=== PATIENT | male | born 1965 | race Caucasian/White ===

== ENCOUNTER 2016-11-13 17:27 | Observation (INO) | payer OTHER ==
[2016-11-13 17:32] VITALS: BMI 25.8
--- NOTE | 2016-11-13 17:59 | PDOC ---
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, with no significant past medical history who presents to the ED with complaints of perianal abscess which he noticed today. He denies noticing any drainage to the area and denies any other complaints. The patient is going to be taken to the OR for an I&D of the abscess by Dr. Acuña. The patient denies any fevers or chills. <Charlette Eastman - Last Filed: 11/13/16 19:43> <Danii Warren - Last Filed: 11/14/16 02:18> - General Chief Complaint: Abscess Boil Stated Complaint: ABSCESS Time Seen by Provider: 11/13/16 17:43 Past History <Charlette Eastman - Last Filed: 11/13/16 19:43> - Past Medical History Anemia: No Asthma: No Cancer: No Cardiac Disorders: No CVA: No COPD: No CHF: No Dementia: No Diabetes: No GI Disorders: No Disorders: No HTN: No Hypercholesterolemia: No Liver Disease: No Seizures: No Thyroid Disease: No - Psycho/Social/Smoking Cessation Hx Suicidal Ideation: No Smoking History: Never smoked Hx Alcohol Use: Yes (SOCIAL) Drug/Substance Use Hx: No Substance Use Type: None Hx Substance Use Treatment: No <Danii Warren - Last Filed: 11/14/16 02:18> - Past Medical History Allergies/Adverse Reactions: Allergies Allergy/AdvReac Type Severity Reaction Status Date / Time Penicillins Allergy Verified 11/13/16 17:30 Home Medications: Ambulatory Orders Levofloxacin [Levaquin] 500 mg PO DAILY 11/13/16 Review of Systems - Review of Systems Able to Perform ROS?: Yes Comments:: 11/13/16 18:05 CONSTITUTIONAL: Absent: fever, no chills, no fatigue EYES: Absent: visual changes ENT: Absent: ear pain, no sore throat CARDIOVASCULAR: Absent: chest pain, no palpitations RESPIRATORY: Absent: cough, no SOB GI: Absent: abdominal pain, no nausea, no vomiting, no constipation, no diarrhea GENITOURINARY: Absent: dysuria, no frequency, no hematuria MUSKULOSKELETAL: Absent: back pain, no arthralgia, no myalgia SKIN: Present: perianal abscess Absent: rash NEURO: Absent: headache All Other Systems: Reviewed and Negative <Charlette Eastman - Last Filed: 11/13/16 19:43> *Physical Exam - Vital Signs Last Vital Signs Temp Pulse Resp BP Pulse Ox 98.1 F 91 H 18 146/80 99 11/13/16 17:30 11/13/16 17:30 11/13/16 17:30 11/13/16 17:30 11/13/16 17:30 - Physical Exam Comments: 11/13/16 18:10 GENERAL: Well-appearing, well-nourished. No apparent distress. HEENT: Normocephalic, atraumatic. PERRL, EOM intact. CARDIOVASCULAR: Normal S1, S2. Regular rate and rhythm. PULMONARY: Clear to auscultation bilaterally. ABDOMEN: Soft, non-distended, non-tender. EXTREMITIES: Normal ROM in all four extremities. No gross deformities. SKIN: Perianal abscess. Warm, dry. NEUROLOGICAL: No focal neurological deficits. <Charlette Eastman - Last Filed: 11/13/16 19:43> - Vital Signs Last Vital Signs Temp Pulse Resp BP Pulse Ox 98.1 F 91 H 18 146/80 99 11/13/16 17:30 11/13/16 17:30 11/13/16 17:30 11/13/16 17:30 11/13/16 17:30 <Danii Warren - Last Filed: 11/14/16 02:18> Heart Score/ECG Review - ECG Intrepretation Comment:: 11/13/16 19:43 ECG obtained at 18:00 Normal sinus at 78 bpm <Charlette Eastman - Last Filed: 11/13/16 19:43> ED Treatment Course - LABORATORY CBC & Chemistry Diagram: 11/13/16 18:00 11/13/16 18:00 <Charlette Eastman - Last Filed: 11/13/16 19:43> - LABORATORY CBC & Chemistry Diagram: 11/13/16 18:00 11/13/16 18:00 <Danii Warren - Last Filed: 11/14/16 02:18> Medical Decision Making - Medical Decision Making 11/14/16 02:16 51-year-old male sent in by his surgeon for incision and drainage of perianal abscess -stable vital signs -IV placed,ekg ,cbc,comp -pt went to OR <Danii Warren - Last Filed: 11/14/16 02:18> *DC/Admit/Observation/Transfer - Attestations Scribe Attestion: 11/13/16 18:11 Documentation prepared by Charlette Eastman, acting as medical surgical tech for Danii Warren MD. <Charlette Eastman - Last Filed: 11/13/16 19:43> - Discharge Dispostion Admit: Yes <Danii Warren - Last Filed: 11/14/16 02:18> Diagnosis at time of Disposition: Perianal abscess - Discharge Dispostion Condition at time of disposition: Stable - Referrals - Patient Instructions
[2016-11-13] MEDS ORDERED: SODIUM CHLORIDE 1,000 ML IV STA (18:05)
[2016-11-13] MEDS ORDERED: MIDAZOLAM HCL 2 MG/2 ML SINGLE DOSE VIAL ONE ×2 (18:39)
[2016-11-13] MEDS ORDERED: PROPOFOL 20 ML ONE ×2 (18:39)
[2016-11-13] MEDS ORDERED: BUPIVACAINE HCL/PF 0.5% (5MG/ML) 10 ML VIAL ONE (18:42)
[2016-11-13] MEDS ORDERED: LIDOCAINE HCL 2% (20ML MULTI-DOSE VIAL) NR ONE (18:42)
[2016-11-13 18:50] LABS: BASOPHIL 0.4 % (0-2.0); EOSINOPHIL 1.1 % (0-4.5); MCH 26.2 pg (25.7-33.7); MCHC 33.6 g/dl (32.0-35.9); MEAN CELL VOLUME 77.9 fl (80-96); MEAN PLT VOLUME 9.7 fl (7.5-11.1); NEUTROPHILS 60.7 % (42.8-82.8); PLATELET COUNT 304 K/MM3 (134-434); RDW 15.4 % (11.9-15.9)
[2016-11-13] MEDS ORDERED: CLINDAMYCIN 600 MG PREMIX BAG IVPB ONE (18:50)
[2016-11-13] MEDS ORDERED: BUPIVACAINE HCL/PF (5 MG/ML) 30 ML VIAL IJ ONE (18:50)
[2016-11-13] MEDS ORDERED: LIDOCAINE HCL 2% (50ML VIAL) NR ONE (18:55)
[2016-11-13] MEDS ORDERED: oxyCODONE HCL 5 MG TABLET PO PRN (19:13)
[2016-11-13] MEDS ORDERED: PROMETHAZINE HCL 25 MG/1 ML VIAL IVPUSH PRN (19:13)
[2016-11-13] MEDS ORDERED: ONDANSETRON 4 MG/2 ML VIAL IVPUSH PRN (19:13)
--- NOTE | 2016-11-13 19:22 | HP ---
Satellite H - Chief Complaint Chief Complaint: Drainage of pus in perirecral area for 2 weeks. History of Present Illness: C/O Intermittent drainage of pus from the pernieum , with pain and selling , followed by discharge, for the past 2 weeks. History Source: Patient Limitations to Obtaining History: No Limitations - Past Medical History Allergies/Adverse Reactions: Allergies Allergy/AdvReac Type Severity Reaction Status Date / Time Penicillins Allergy Verified 11/13/16 17:30 - Current Medications Current Medications: Home Medications Medication Instructions Recorded Levofloxacin [Levaquin] 500 mg PO DAILY 11/13/16 Satellite Physical Exam - Physical Examination Vital Signs: Vital Signs Period Temp Pulse Resp BP Sys/Patten Pulse Ox Last 24 Hr 98.1 F 91 18 146/80 99 Abdomen: Other (In the perineum there is a drainind , and indurated area at 111 O'Clock position from the anus, suggestive of a draining abscess.) Satellite Impression/Plan - Impression/Plan Impression: Perianal abscess, possible anal fistula. Plan: Examination under anesthesia, and drainage of perianal abscess. Operative Procedure: Examination under anesthesia and drainage of perianal abscess. Date to be Performed: 11/13/16
--- NOTE | 2016-11-13 19:25 | OP ---
Operative Note - Note: Operative Date: 11/13/16 Pre-Operative Diagnosis: Perianal abscess. Operation: Examination under anesthesia, drainage of perianal abscess. Findings: Perianal abscess at 11O'clock position with , ? superficial anl fistula. Post-Operative Diagnosis: Same as Pre-op Surgeon: Dee Acuña Anesthesia: General Specimens Removed: Swab for culture. Estimated Blood Loss (mls): 10 Operative Report Dictated: Yes
[2016-11-13 19:27] LABS: ALBUMIN 4.1 g/dl (3.4-5.0); ALK PHOS 84 U/L (45-117); ANION GAP 7 (8-16); BILIRUBIN,TOTAL 0.6 mg/dL (0.2-1.0); CALCIUM 9.6 mg/dL (8.5-10.1); CO2 27 mmol/L (21-32); CREATININE 0.9 mg/dL (0.7-1.3); GLUCOSE,RANDOM 79 mg/dL (74-106); SGOT/AST 17 U/L (15-37); SGPT/ALT 28 U/L (12-78); TOT PROT 7.8 g/dl (6.4-8.2)
[2016-11-13 20:22] VITALS: PULSE 68
[2016-11-13 20:29] VITALS: BP 112/78; TEMP 98.3
--- NOTE | 2016-11-14 07:54 | OP ---
DATE OF OPERATION: 11/13/2016 PREOPERATIVE DIAGNOSIS: Recurrent perianal abscess, rule out anal fistula. POSTOPERATIVE DIAGNOSIS: Perianal abscess with superficial anal fistula at the 11 o'clock position. OPERATIVE PROCEDURE: Examination under anesthesia, incision and drainage of perianal abscess. OPERATIVE FINDINGS: Perianal abscess at the 11 o'clock position with a subcutaneous superficial anal fistula. SURGEON: Kayden Acuña MD ANESTHESIA: General anesthesia. ANESTHESIOLOGIST: Francisco Muhammad MD OPERATIVE DESCRIPTION: This 51-year-old man presented with recurrent draining perianal abscesses for the last few weeks. Patient was examined. There was induration at about 11 o'clock about 2 to 3 cm from the anal verge. Patient was brought for examination under anesthesia and for drainage of perianal abscess and evaluation. Patient was given general anesthesia after obtaining consent. Timeout was called. He was given 1 g of clindamycin as he is allergic to PENICILLIN. He was placed in lithotomy position and the perineum was painted and draped. There was induration about 4 cm from anal verge at the 11 o'clock position. This was incised and pus was evacuated. Swab was sent for culture and natibiotic sensitivity. This was then probed and it was found that there was a subcutaneous tract all the way down to the anorectal junction. This was a very superficial anal fistula. However, the external opening was widened. About 2 cm diameter of the skin was excised. The tract was then cauterized with electrocautery and the area was saucerized. The wound was irrigated and packed with 1/4-inch Iodoform gauze and a dressing applied. Patient tolerated the procedure well and was sent to the recovery room in satisfactory and stable condition. Prior to this, a generous amount of 1% lidocaine was infiltrated around the inflammation. Zain WILKINS/[id number] cc: MD DAVID Casiano
--- NOTE | 2016-11-14 14:45 | EKG ---
Test Reason : Blood Pressure : / mmHG Vent. Rate : 078 BPM Atrial Rate : 078 BPM P-R Int : 152 ms QRS Dur : 084 ms QT Int : 342 ms P-R-T Axes : 059 014 027 degrees QTc Int : 389 ms NORMAL SINUS RHYTHM NORMAL ECG NO PREVIOUS ECGS AVAILABLE Confirmed by RICH JOSÉ MD ([id number]) on 11/14/2016 2:44:57 PM Referred By: Confirmed By:RICH JOSÉ MD
== END 2016-11-13 21:14 | disposition home or self-care (01) ==
LOC: JER 17:27 → J4S 20:19
PROVIDERS: ADMIT Specialist; ATTEND Specialist
PROC: 0D9Q0ZX Drainage of Anus, Open Approach, Diagnostic (ICD-10-PCS; principal; 2016-11-13 18:30)
DX: K61.0 Anal abscess (principal)
CPT/HCPCS: 36415; 80053; 85025; 87070; 87076; 87205; 93005; 93010; 94760; 99283-25; G0378

== ENCOUNTER 2017-01-11 08:30 | Day surgery (SDC) | payer OTHER ==
[2017-01-10 16:25] VITALS: BMI 25.8
--- NOTE | 2017-01-11 08:59 | HP ---
History & Physical Update - History History: No Change - Physical Physical: No Change - Assessment Assessment: No Change - Plan Plan: No Change
[2017-01-11] MEDS ORDERED: MIDAZOLAM HCL 2 MG/2 ML SINGLE DOSE VIAL ONE (09:10)
[2017-01-11] MEDS ORDERED: PROPOFOL 20 ML ONE (09:10)
[2017-01-11] MEDS ORDERED: LIDOCAINE HCL/PF 2% SDV 5ML VIAL ONE (09:30)
[2017-01-11] MEDS ORDERED: LEVOFLOXACIN 500 MG IVPB 100 ML IVPB ONE (09:33)
[2017-01-11] MEDS ORDERED: LEVOFLOXACIN 500 MG PREMIX BAG IVPB ONE (09:34)
[2017-01-11] MEDS ORDERED: DEXAMETHASONE SOD PHOSPHATE 4 MG/1 ML VIAL ONE (09:46)
[2017-01-11] MEDS ORDERED: BUPIVACAINE HCL/PF 0.5% (5MG/ML) 10 ML VIAL IJ ONE ×2 (09:47→10:15)
[2017-01-11] MEDS ORDERED: KETOROLAC TROMETHAMINE 30 MG/1 ML VIAL ONE (09:56)
[2017-01-11] MEDS ORDERED: GLYCOPYRROLATE 0.2 MG/1 ML VIAL ONE (09:56)
[2017-01-11] MEDS ORDERED: PROMETHAZINE HCL 25 MG/1 ML VIAL IVPUSH PRN (10:37)
[2017-01-11] MEDS ORDERED: ONDANSETRON 4 MG/2 ML VIAL IVPUSH PRN (10:37)
[2017-01-11] MEDS ORDERED: LACTATED RINGERS SOLUTION 1,000 ML IV SCH (10:45)
--- NOTE | 2017-01-11 10:48 | OP ---
Operative Note - Note: Operative Date: 01/11/17 Pre-Operative Diagnosis: Anal fistula. Operation: Proctosigmoidoscopy, anal dilation, and rectal polypectomy. Anal fistulectomy, with placement of seton. Findings: Recatl poyp at 12 o'clock position, excised. Anal fistula at 10 o"clock position traversing the superficial fibers of the external sphincter. Post-Operative Diagnosis: Other (Rectal polyp, and anal fistula, transsphincteric.) Surgeon: Dee Acuña Anesthesiologist/ELECTRICAL & INSTRUMENTATION SUPERVISOR: Jhonny Mo Anesthesia: General Specimens Removed: 1)Rectal poyp,0. 2) anal fistula. Estimated Blood Loss (mls): 10 Instrument used (Debridements only): Curette Operative Report Dictated: Yes
--- NOTE | 2017-01-11 12:13 | OP ---
DATE OF OPERATION: 01/11/2017 PREOPERATIVE DIAGNOSIS: Anal fistula at the 11 o'clock position with recurrent abscesses. POSTOPERATIVE DIAGNOSIS: 1. Anal fistula at the 11 o'clock position with recurrent abscesses. 2. Transsphincteric anal fistula at 10 o'clock position and rectal polyp at 12 o'clock position. OPERATIVE PROCEDURE: 1. Proctosigmoidoscopy with anal dilation and rectal polypectomy. 2. Anal fistulectomy with placement of seton. SURGEON: Souleymane Wilkins MD ANESTHESIA: General anesthesia. 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 The patient was brought in for anal fistulectomy. Consent was obtained. Risks, benefits, and complications were discussed with the patient. Patient was placed in lithotomy position after he was given general anesthesia. The perineum was painted and draped. Time-out was called. He was given 1 g of Levaquin and A proctosigmoidoscopy was done with a rigid scope. The bowel prep was adequate. There was a small polyp, which appeared to be a fibrotic polyp at 12 o'clock position. This was excised with electrocautery. Specimen was sent to Pathology. A probe was then inserted through the external opening of the anal fistula over the skin at 10 o'clock position. This entered at 10 o'clock position into the anorectal junction. An elliptical incision was then made around the external opening of the fistula. This was carried down through the skin and subcutaneous tissues in an elliptical fashion towards the internal opening. This was carried down through the anal fistula all the way down. As it went towards the internal opening, it appeared to pass through the superficial fibers of the external sphincter. This last 1 cm was then left with the probe. The fistula was curetted. The fistula distal to this all the way to the external skin was completely excised and sent to Pathology. The tract was then curetted with a curette . A No. 2 Prolene suture was then inserted through the remnant of the fistula, and this was tied. Hemostasis was then achieved. Wound was irrigated and packed with Iodoform gauze. Estimated blood loss was less then 10 mL. Sponge count and instrument count were correct. Sterile dressing was placed. Specimen consisted of 1 rectal polyp, another anorectal fistula. Zain WILKINS/[id number] MTDD
[2017-01-11 12:54] VITALS: TEMP 97.9
[2017-01-11 14:02] VITALS: BP 141/84; PULSE 71
--- NOTE | 2017-01-14 09:56 | PATH ---
Surgical Pathology Report Patient Name: YASSINE MEDINA [facility]. Rec. #: [id number] /Age/Gender: 1965 (Age: 51) / M Account: [id number] Location: [facility] SURGICAL Taken: 01/11/2017 Received: 01/11/2017 Reported: 01/14/2017 Physicians: Kayden Acuña M.D. Specimen(s) Received A: ANAL RECTAL POLYP AT 11'O'CLOCK B: ANAL FISTULA Clinical History Anal fistula Final Diagnosis A. ANORECTAL POLYP AT 11:00, POLYPECTOMY: BENIGN SQUAMOUS MUCOSA WITH FIBROEPITHELIAL POLYP AND ECTATIC BLOOD VESSELS. MILD CHRONIC INFLAMMATION AND FOCAL PARAKERATOSIS IS PRESENT AREAS NO DYSPLASIA IDENTIFIED. B. ANAL FISTULA, CURETTING: BENIGN SQUAMOUS MUCOSA WITH FISTULA TRACT, WITH ASSOCIATED INFLAMED GRANULATION TISSUE. FOREIGN BODY REACTION IS PRESENT. NO DYSPLASIA IDENTIFIED. Electronically Signed Abraham Regalado M.D. Gross Description A. Received in formalin labeled "anal rectal polyp at 11:00," is a 0.7 x 0.5 x 0.2 cm pink-youngblood, polypoid portion of soft tissue. The base is inked blue and the specimen is submitted in toto in one cassette. B. Received in formalin labeled "anal fistula," is a 2.4 x 1.3 x 1.2 cm irregular, unoriented portion of skin with underlying soft tissue. The base is inked blue and the specimen is serially sectioned and entirely and sequentially submitted in 4 cassettes. /01/11/2017 saudi/01/11/2017
== END 2017-01-11 13:00 | disposition home or self-care (01) ==
LOC: JASU-SURG 08:30
PROVIDERS: ATTEND Specialist
PROC: 0DBQ0ZZ Excision of Anus, Open Approach (ICD-10-PCS; 2017-01-11)
PROC: 0D5P8ZZ Destruction of Rectum, Via Natural or Artificial Opening Endoscopic (ICD-10-PCS; 2017-01-11)
PROC: 0D5P8ZZ Destruction of Rectum, Via Natural or Artificial Opening Endoscopic (ICD-10-PCS; principal; 2017-01-11 09:30)
DX: K60.3 Anal fistula (principal); K62.1 Rectal polyp
CPT/HCPCS: 88304-TC; 94760

== ENCOUNTER 2017-02-22 08:28 | Day surgery (SDC) | payer OTHER ==
[2017-02-20 15:54] VITALS: BMI 25.8
[2017-02-22] MEDS ORDERED: LIDOCAINE 1%/EPI 1:100000 (20 ML MULTI DOSE VIAL) ONE (09:19)
[2017-02-22] MEDS ORDERED: BUPIVACAINE HCL/PF 0.5% (5MG/ML) 10 ML VIAL ONE (09:19)
[2017-02-22] MEDS ORDERED: MIDAZOLAM HCL 2 MG/2 ML SINGLE DOSE VIAL ONE ×2 (09:19)
[2017-02-22] MEDS ORDERED: LIDOCAINE HCL 2% 100 MG/5 ML DISP.SYRIN ONE (09:20)
[2017-02-22] MEDS ORDERED: PROPOFOL 20 ML ONE (09:20)
[2017-02-22] MEDS ORDERED: LEVOFLOXACIN 500 MG PREMIX BAG IVPB ONE (09:45)
[2017-02-22] MEDS ORDERED: ONDANSETRON 4 MG/2 ML VIAL ONE (09:48)
[2017-02-22] MEDS ORDERED: KETOROLAC TROMETHAMINE 30 MG/1 ML VIAL ONE (09:48)
[2017-02-22] MEDS ORDERED: BUPIVACAINE HCL/PF 0.5% (5MG/ML) 10 ML VIAL IJ ONE (09:48)
[2017-02-22] MEDS ORDERED: DEXAMETHASONE SOD PHOSPHATE 4 MG/1 ML VIAL ONE (09:48)
--- NOTE | 2017-02-22 10:04 | OP ---
Operative Note - Note: Operative Date: 02/22/17 Pre-Operative Diagnosis: Anal fistula, s/p Placement of seton. Operation: Anoscopy , anal dialtation. anal fistulotomy. Examination under anesthesia. Findings: Small superficial anal fistula at 11 O'Clock position. Post-Operative Diagnosis: Same as Pre-op Surgeon: Dee Acuña Anesthesia: General Specimens Removed: None, Estimated Blood Loss (mls): 5 Operative Report Dictated: Yes
[2017-02-22] MEDS ORDERED: ONDANSETRON 4 MG/2 ML VIAL IVPUSH PRN (10:43)
[2017-02-22] MEDS ORDERED: PROMETHAZINE HCL 25 MG/1 ML VIAL IVPUSH PRN (10:43)
[2017-02-22] MEDS ORDERED: oxyCODONE HCL 5 MG TABLET PO PRN (10:43)
[2017-02-22] MEDS ORDERED: LACTATED RINGERS SOLUTION 1,000 ML IV SCH (10:45)
--- NOTE | 2017-02-22 10:50 | OP ---
DATE OF OPERATION: 02/22/2017 PREOPERATIVE DIAGNOSIS: Anal fistula status post first stage and placement of seton. POSTOPERATIVE DIAGNOSIS: Anal fistula at the 11 o'clock position status post first stage and placement of seton. OPERATIVE PROCEDURE: Anoscopy with anal dilatation, examination under anesthesia, and anal fistulotomy. SURGEON: Kayden Acuña MD ANESTHESIA: General anesthesia. OPERATIVE DESCRIPTION: This 51-year-old gentleman who has had chronic perianal abscess with anal fistula had undergone first stage anal fistulotomy with placement of a seton through the external sphincter about 8 weeks ago. The patient was brought in for replacement of the seton and possible anal fistulotomy. The patient was given general anesthesia and placed in the lithotomy position. The perineum was painted and draped. A time-out was called. He was given a gram of Cipro. Anal dilatation was performed with finger, and anoscope was introduced. There was granulation tissue at 11 o'clock position, from the previous partial , first stage fistulectomy. A small fistulous tract was identified, on the medial aspect of the granulation tissue , towards the anal canal. Through this fistula, a fistula probe was introduced, which opened into the anal canal. The fistula tract was superficial, and not traversing the external anal sohincter. There was plenty of scar tissue and granulation around the tract,, and it did not appear to go through the external sphincter. A small anal fistula about 1 cm in length was then incised and opened, over the probe. There was no purulent material. The wound was fresh, clean, and there appeared to be no concern of compromise of the anal sphincter. Then 0.5% Marcaine was injected around the external sphincter. Pad was left. The patient tolerated the procedure well and was extubated and sent to the recovery room in satisfactory and stable condition. Zain [id number] cc: Slim Hoyos MD MTDD
[2017-02-22 10:57] VITALS: TEMP 97.9
[2017-02-22 12:20] VITALS: BP 130/86; PULSE 91
== END 2017-02-22 12:20 | disposition home or self-care (01) ==
LOC: JASU-SURG 08:28
PROVIDERS: ATTEND Specialist
PROC: 0D8R0ZZ Division of Anal Sphincter, Open Approach (ICD-10-PCS; principal; 2017-02-22 09:30)
DX: K60.3 Anal fistula (principal)
CPT/HCPCS: 94760

== ENCOUNTER 2018-06-23 07:12 | Day surgery (SDC) | payer OTHER ==
[2018-06-23 07:37] VITALS: BMI 25.5
[2018-06-23 09:18] VITALS: TEMP 97.5
[2018-06-23 10:20] VITALS: BP 111/70; PULSE 66
--- NOTE | 2018-06-24 18:32 | PATH ---
Surgical Pathology Report Patient Name: YASSINE MEDINA [facility]. Rec. #: [id number] /Age/Gender: 1965 (Age: 53) / M Account: [id number] Location: [facility]-ENDOSCOPY Taken: 06/23/2018 Received: 06/23/2018 Reported: 06/24/2018 Physicians: Dinh Kamara M.D. Specimen(s) Received A: DUODENUM AND BULB B: CARDIA POLYP C: ANTRUM D: GE JUNCTION E: ILEOCECAL VALVE POLYP F: HEPATIC FLEXURE POLYP G: RECTAL POLYP Clinical History Dyspepsia and colon cancer screening Postoperative diagnosis: Gastric polyp, colon polyps Final Diagnosis A. DUODENUM, SECOND PORTION AND BULB, BIOPSY: DUODENAL MUCOSA WITHOUT SIGNIFICANT PATHOLOGIC FINDINGS. B. GASTRIC CARDIA POLYP, BIOPSY: POLYPOID GASTRIC CARDIAC TYPE MUCOSA WITH MODERATE TO SEVERE CHRONIC ACTIVE GASTRITIS. IMMUNOHISTOCHEMICAL STAIN FOR H. PYLORI IS POSITIVE (MANY). C. ANTRUM, BIOPSY: GASTRIC ANTRAL MUCOSA WITH SEVERE CHRONIC ACTIVE GASTRITIS. IMMUNOHISTOCHEMICAL STAIN FOR H. PYLORI IS POSITIVE (MANY). D. GE JUNCTION, BIOPSY: SQUAMOCOLUMNAR MUCOSA WITH MILD CHRONIC INFLAMMATION AND CHANGES OF MODERATE TO SEVERE REFLUX ESOPHAGITIS. NO INTESTINAL METAPLASIA OR DYSPLASIA IDENTIFIED. E. ILEOCECAL VALVE, POLYP, BIOPSY: TUBULAR ADENOMA. F. HEPATIC FLEXURE, POLYP, BIOPSY: TUBULAR ADENOMA. G. RECTUM, POLYP, BIOPSY: COLONIC MUCOSA WITH FOCAL SUPERFICIAL HYPERPLASTIC FEATURES. Electronically Signed Joy Nunez M.D. Gross Description A. Received in formalin, labeled "second portion of duodenum and bulb biopsy" are 3 youngblood, irregular portions of soft tissue ranging from 0.4-0.5 cm. in greatest dimension. The specimens are submitted in toto in one cassette. B. Received in formalin, labeled "gastric cardia polyp" are 3 youngblood, irregular portions of soft tissue ranging from 0.1-0.8 cm. in greatest dimension. The specimens are submitted in toto in one cassette. C. Received in formalin, labeled "antrum biopsy" are 6 youngblood, irregular portions of soft tissue ranging from 0.2-0.6 cm. in greatest dimension. The specimens are submitted in toto in one cassette. D. Received in formalin, labeled "GE junction biopsy" are 2 youngblood, irregular portions of soft tissue measuring 0.3 and 0.5 cm. in greatest dimension. The specimens are submitted in toto in one cassette. E. Received in formalin, labeled "ileocecal valve biopsy" are 2 youngblood, irregular portions of soft tissue measuring 0.1 and 0.3 cm. in greatest dimension. The specimens are submitted in toto in one cassette. F. Received in formalin, labeled "hepatic flexure polyp biopsy" are 2 youngblood, irregular portions of soft tissue measuring 0.3 and 0.6 cm. in greatest dimension. The specimens are submitted in toto in one cassette. G. Received in formalin, labeled "rectal polyp biopsy" is a youngblood, irregular portion of soft tissue measuring 0.3 cm. in greatest dimension. The specimen is submitted in toto in one cassette. 06/23/2018 [facility]06/23/2018
== END 2018-06-23 10:28 | disposition home or self-care (01) ==
LOC: JASU-ENDO 07:12
PROVIDERS: ATTEND Internal Medicine Gastroenterology
PROC: 0DBL8ZX Excision of Transverse Colon, Via Natural or Artificial Opening Endoscopic, Diagnostic (ICD-10-PCS; 2018-06-23)
PROC: 0DBP8ZX Excision of Rectum, Via Natural or Artificial Opening Endoscopic, Diagnostic (ICD-10-PCS; 2018-06-23)
PROC: 0DB98ZX Excision of Duodenum, Via Natural or Artificial Opening Endoscopic, Diagnostic (ICD-10-PCS; 2018-06-23)
PROC: 0DB68ZX Excision of Stomach, Via Natural or Artificial Opening Endoscopic, Diagnostic (ICD-10-PCS; 2018-06-23)
PROC: 0DB48ZX Excision of Esophagogastric Junction, Via Natural or Artificial Opening Endoscopic, Diagnostic (ICD-10-PCS; 2018-06-23)
PROC: 0DBC8ZX Excision of Ileocecal Valve, Via Natural or Artificial Opening Endoscopic, Diagnostic (ICD-10-PCS; principal; 2018-06-23 09:00)
DX: Z12.11 Encounter for screening for malignant neoplasm of colon (principal); D12.3 Benign neoplasm of transverse colon; D12.0 Benign neoplasm of cecum; K62.1 Rectal polyp; R10.13 Epigastric pain; K31.7 Polyp of stomach and duodenum; K29.50 Unspecified chronic gastritis without bleeding; K21.0 Gastro-esophageal reflux disease with esophagitis; B96.81 Helicobacter pylori [H. pylori] as the cause of diseases classified elsewhere; K64.8 Other hemorrhoids
CPT/HCPCS: 88305-TC; 88342-TC

== ENCOUNTER 2022-10-01 04:38 | Day surgery (SDC) | payer OTHER ==
[2022-09-27 13:45] VITALS: BMI 23.8
[2022-10-01 12:00] VITALS: BP 114/76; PULSE 67; RESP 19; TEMP 98.5
== END 2022-10-01 12:03 | disposition home or self-care (01) ==
LOC: JASU-ENDO 04:38
PROVIDERS: ATTEND Internal Medicine Gastroenterology
PROC: 0DB98ZX Excision of Duodenum, Via Natural or Artificial Opening Endoscopic, Diagnostic (ICD-10-PCS; 2022-10-01)
PROC: 0DB78ZX Excision of Stomach, Pylorus, Via Natural or Artificial Opening Endoscopic, Diagnostic (ICD-10-PCS; 2022-10-01)
PROC: 0DBL8ZX Excision of Transverse Colon, Via Natural or Artificial Opening Endoscopic, Diagnostic (ICD-10-PCS; principal; 2022-10-01 11:00)
DX: Z12.11 Encounter for screening for malignant neoplasm of colon (principal); D12.3 Benign neoplasm of transverse colon; K64.8 Other hemorrhoids; Z86.010 Personal history of colon polyps; K29.50 Unspecified chronic gastritis without bleeding; B96.81 Helicobacter pylori [H. pylori] as the cause of diseases classified elsewhere
CPT/HCPCS: 88305-TC; 88341-TC; 88342-TC